=== PATIENT | male | born 1960 | race Caucasian/White ===

== ENCOUNTER 2016-12-23 15:07 | Emergency (ER) | payer BC ==
[~2016-12-23] VITALS: Ht 180.3 cm; Wt 72.0 kg
[2016-12-23 15:09] VITALS: Ht 180.3 cm; Wt 72.0 kg
[2016-12-23] MEDS ORDERED: AZIT500T5 PO (16:25)
[2016-12-23 16:38] VITALS: BP 124/78; RESP 18
--- NOTE | 2016-12-23 16:38 | ERD ---
ER Documentation Chief Complaint Chief Complaint st since tuesday HPI This 56-year-old male presents emergency room with a sore throat to begin Tuesday. Getting progressively worse. Is also noted swollen lymph nodes in his neck. He looked on the Internet and believes he may be coming down with strep throat. He has not had strep throat since he was a child has not taken antibiotics in many years and does not like to take them would be willing to to prevent the complications of strep throat. Is still able to eat and swallow his own secretions. He did try ibuprofen once, although he does not like to take pills, they did help temporarily. ROS All systems reviewed and are negative except as per history of present illness. Medications Home Meds Active Scripts Azithromycin* (Azithromycin*) 500 Mg Tablet, 500 MG PO DAILY for 3 Days, TAB Prov:SHAUNA JUARES DO 12/23/16 Reported Medications [none] No Conflict Check 05/12/11 Allergies Allergies: Uncoded Allergies: NONE (Allergy, 05/12/11) PMhx/Soc History of Surgery: No Anesthesia Reaction: No Hx Neurological Disorder: No Hx Respiratory Disorders: No Hx Cardiac Disorders: No Hx Psychiatric Problems: No Hx Miscellaneous Medical Probl: No Hx Alcohol Use: No Hx Substance Use: No Hx Tobacco Use: No Physical Exam Vitals Vital Signs Date Time Temp Pulse Resp B/P Pulse Ox O2 Delivery O2 Flow Rate FiO2 12/23/16 15:09 98.0 90 18 124/78 99 Physical Exam Const: [] No distress ENT: Normal External Ears, Nose and Mouth. Oropharynx with mild erythema Neck: Full range of motion..~ No meningismus.Tender left anterior cervical lymph node. Procedures/MDM 56-year-old male that is very concerned for strep throat. He does not want to undergo streptococcal testing for financial reasons. I will discharge him with azithromycin 3 day course of 500 mg return precautions to the ER for any worsening of his symptoms. Is going to follow-up his primary care doctor as scheduled. Very low suspicion for retropharyngeal abscess. Departure Diagnosis: Primary Impression: Acute pharyngitis Condition: Stable Patient Instructions: Pharyngitis, Report Pending Additional Instructions: Call your primary care doctor TOMORROW for an appointment during the next 2-3 days.See the doctor sooner or return here if your condition worsens before your appointment time. SHAUNA JUARES DO Dec 23, 2016 16:38
== END 2016-12-23 16:40 | disposition home or self-care (01) ==
LOC: FTE 15:07
DX: J02.9 Acute pharyngitis, unspecified (principal)
CPT/HCPCS: 99283